=== PATIENT | female | born 1990 | race Caucasian/White ===

== ENCOUNTER 2023-06-24 16:59 | Emergency (ER) | payer OTHER ==
[~2023-06-24] VITALS: Ht 160 cm; Wt 100.0 kg
[2023-06-24] MEDS ORDERED: FLUO20CA36 PO (17:03)
[2023-06-24 17:06] VITALS: TEMP 98.2
[2023-06-24 17:35] VITALS: BP 125/70; PULSE 80; RESP 16
== END 2023-06-24 17:47 | disposition home or self-care (01) ==
LOC: EMS 17:09
DX: F32.A Depression, unspecified (principal); F41.9 Anxiety disorder, unspecified; Z98.890 Other specified postprocedural states
CPT/HCPCS: 99281; Z7502